=== PATIENT | male | born 1960 | race Caucasian/White ===

== ENCOUNTER 2018-07-18 19:47 | Day surgery (SDC) | payer OTHER ==
--- NOTE | 2018-07-18 20:07 | EDPHY ---
General Time Seen by Provider: 07/18/18 19:58 Narrative: CHIEF COMPLAINT: Something stuck in my throat HISTORY OF PRESENT ILLNESS: Patient presents by private vehicle with complaints of something stuck in my throat. He states that he was eating inch a lot is at 5:00 p.m. Today when he felt a sudden onset of "I feel like it was stuck in my throat." He feels that it is lower in the esophagus, pointing to just above the epigastrium. He says that he has been able to talk freely but he had difficulty drinking liquids since then. He feels like he is bringing up "lots of phlegm," but he has no chest pain or shortness of breath. He has no sensation of foreign body in the throat or upper esophagus. He has had similar episodes in the past that required no intervention but felt the same as this. He has never been seen by GI physician and never undergone upper endoscopy. He has no chest pain or shortness of breath. No nausea vomiting. No diaphoresis. He was 1st seen at an urgent care, where they administered nitroglycerin and sent him here. He has no other associated complaints or modifying factors. REVIEW OF SYSTEMS: 10 systems were reviewed and negative with the exception of the elements mentioned in the history of present illness. PCP: None SPECIALISTS: None PAST MEDICAL HISTORY: Denies PAST SURGICAL HISTORY: None SOCIAL HISTORY: Nonsmoker. Quit smoking 3 years ago. No drug or alcohol use. Works as an surgical assistant at [employer] FAMILY HISTORY: Noncontributory. No known history of achalasia, Zenker's diverticulum or esophageal strictures. EXAMINATION: Vitals: Triage VS reviewed General Appearance: Alert, no distress. Conversing appropriately. No stridor. Head: normocephalic, atraumatic Eyes: Pupils equal and round, no conjunctival pallor or injection ENT, Mouth: Mucous membranes moist. No drooling. No trismus. Airway is widely patent. Neck: Normal inspection, supple, non-tender Respiratory: Lungs are clear to auscultation Cardiovascular: Regular rate and rhythm. No murmur Gastrointestinal: Abdomen is soft and nontender Extremities: Nontender, no pedal edema Psychiatric: Mood and affect normal DIFFERENTIAL DIAGNOSES: Including but not limited to esophageal stricture, esophageal spasm, esophageal foreign body, esophagitis, Zenker's, tracheal foreign body MDM: 8:05 p.m. Acute esophageal foreign body sensation. His symptoms are in the lower esophagus near the esophageal hiatus. He has no pharyngeal complaints. No drooling. No stridor. No difficulty conversing. He reports difficulty drinking water, thus I have ordered x-rays and glucagon IV. He is in no acute distress. He has no exertional pain, shortness of breath, nausea or diaphoresis. Symptoms started at the same time that he was eating and has had similar symptoms in the past. No acute distress. 8:30 p.m. X-rays as read by me, without radiologist, reveal no acute findings. Patient re -evaluated. He just received his glucagon we will monitor. 9:10 p.m. Patient re-evaluated. He is unable to tolerate liquids. He was spitting this up drooling. He is in no acute distress. No aspiration. 9:20 p.m. Case discussed with GI physician Dr. Martel. He will come evaluate the patient plans taken to the operating room for intubation for endoscopy. 9:30 p.m. Patient re-evaluated. He has consented to remain here for procedure from nutrition educator. He continues to fail p.o. Intake of liquids. We have not attempted any further intake. 11:30 p.m. Patient taken to operating room for endoscopy. At this time he is awake and alert. No acute distress. No drooling. Airway patent. SUPERVISION: Patient was independently examined, but I discussed the case with my secondary supervising physician Dr. Kirkland CONSULTATION: Gastroenterology - Diagnostics Imaging Results: Imaging Impressions Chest X-Ray 07/18/18 20:07 Impression: No acute findings in the chest. Soft Tissue Neck X-Ray 07/18/18 20:07 Impression: 1. No radiopaque foreign object identified. 2. Degenerative change in the cervical spine. - History Smoking Status: Former smoker - Objective Vital Signs: Initial Vital Signs Temperature (C) 97.5 F 07/18/18 19:52 Heart Rate 81 07/18/18 19:52 Respiratory Rate 18 07/18/18 19:52 Blood Pressure 131/83 H 07/18/18 19:52 O2 Sat (%) 97 07/18/18 19:52 O2 Delivery Mode Room Air Allergies/Adverse Reactions: No Known Allergies Allergy (Unverified 11/19/18 19:55) Laboratory Results: Laboratory Results 07/18/18 20:05 07/18/18 20:05 07/18/18 07/18/18 20:05 20:05 WBC 5.70 10^3/uL 10^3/uL (3.80-9.50) RBC 4.83 10^6/uL 10^6/uL (4.40-6.38) Hgb 14.3 g/dL g/dL (13.7-17.5) Hct 42.2 % % (40.0-51.0) MCV 87.4 fL fL (81.5-99.8) MCH 29.6 pg pg (27.9-34.1) MCHC 33.9 g/dL g/dL (32.4-36.7) RDW 12.2 % % (11.5-15.2) Plt Count 276 10^3/uL 10^3/uL (150-400) Sodium 138 mEq/L mEq/L (135-145) Potassium 4.6 mEq/L mEq/L (3.3-5.0) Chloride 104 mEq/L mEq/L (97-110) Carbon Dioxide 23 mEq/l mEq/l (22-31) Anion Gap 11 mEq/L mEq/L (6-14) BUN 23 mg/dL mg/dL (7-23) Creatinine 1.0 mg/dL mg/dL (0.7-1.3) Estimated GFR > 60 Glucose 89 mg/dL mg/dL (70-100) Calcium 9.7 mg/dL mg/dL (8.5-10.4) Medications Given: Discontinued Medications Glucagon (Glucagon) 1 mg IVP EDNOW ONE Stop: 07/18/18 20:09 Last Admin: 07/18/18 20:22 Dose: 1 mg Departure - Departure Disposition: To OP Cath/Surgery Clinical Impression: Esophageal foreign body Qualifiers: Encounter type: initial encounter Qualified Code(s): T18.108A - Unspecified foreign body in esophagus causing other injury, initial encounter Condition: Good
[2018-07-18] MEDS ORDERED: GLUCAGON HCL 1 MG VIAL IVP ONE (20:08)
[2018-07-18] MEDS ORDERED: fentaNYL 100 MCG/2 ML INJ ONE (23:33)
[2018-07-18] MEDS ORDERED: LIDOCAINE 2% 100 MG/5 ML SYR ONE (23:33)
[2018-07-18] MEDS ORDERED: ROCURONIUM 50 MG/5 ML VIAL ONE (23:33)
[2018-07-18] MEDS ORDERED: PROPOFOL 200 MG/20 ML VIAL ONE (23:33)
[2018-07-18] MEDS ORDERED: MIDAZOLAM 2 MG/2 ML VIAL ONE (23:33)
--- NOTE | 2018-07-18 23:35 | PDANEPAE ---
ANE Past Medical History - Pulmonary History Hx Oxygen in Use at Home: No Hx Sleep Apnea: No - Endocrine History Hx Diabetes: No ANE Review of Systems Review of Systems: ANE Patient History - Allergies Allergies/Adverse Reactions: No Known Allergies Allergy (Unverified 07/18/18 19:55) - NPO status NPO Since - Liquids (Date): 07/18/18 NPO Since - Liquids (Time): 21:15 NPO Since - Solids (Date): 07/18/18 NPO Since - Solids (Time): 17:00 - Smoking Hx Smoking Status: Former smoker ANE Labs/Vital Signs - Labs Result Diagrams: 07/18/18 20:05 07/18/18 20:05 - Vital Signs Blood Pressure: 127/72 Heart Rate: 76 Respiratory Rate: 18 O2 Sat (%): 96 Height: 175.26 cm Weight: 88.451 kg ANE Physical Exam - Airway Neck exam: FROM Mallampati Score: Class 2 Mouth exam: normal dental/mouth exam - Pulmonary Pulmonary: no respiratory distress - Cardiovascular Cardiovascular: regular rate and rhythym - ASA Status ASA Status: I, E ANE Anesthesia Plan Anesthesia Plan: general endotracheal anesthesia
[2018-07-19] MEDS ORDERED: SUGAMMADEX SODIUM 200 MG/2 ML VIAL IVP ONE (00:06)
--- NOTE | 2018-07-19 00:17 | GIREPORT ---
[facility] - Endoscopy Department Patient Name: Camilo Oleary Procedure Date: 07/18/2018 11:19 PM Patient Type: Outpatient Attending MD/ ER Physician: Pb Dowling Procedure: Upper GI endoscopy Indications: Dysphagia, Foreign body in the esophagus Providers: Magnus Martel MD Referring MD: Parvez Lujan MD Medicines: General Anesthesia Complications: No immediate complications. Estimated blood loss: Minimal. Description of Procedure: After obtaining informed consent, the endoscope was passed under direct vision. Throughout the procedure, the patient's blood pressure, pulse, and oxygen saturations were monitored continuously. The Endoscope was intro duced through the mouth, and advanced to the third part of duodenum. The uppe r GI endoscopy was accomplished without difficulty. The patient tolerated th e procedure well. Findings: Food was found in the lower third of the esophagus. Removal was accompl ished with a large-capacity forceps, rat-toothed forceps, Rankin net and snare. Estimated blood loss was minimal. Mucosal changes including ringed esophagus and longitudinal furrows wer e found in the entire esophagus. Biopsies were obtained from the proximal and distal esophagus with cold forceps for histology of suspected eosinophi lic esophagitis. Estimated blood loss was minimal. A hiatal hernia was present. Moderate inflammation characterized by congestion (edema) and erythema was found in the entire duodenum. Biopsies were taken with a cold forceps f or histology. Estimated blood loss was minimal. The exam was otherwise without abnormality. Estimated Blood Loss: Estimated blood loss was minimal. Post Op Diagnosis: - Food was found in the esophagus. Removal was successful. - Esophageal mucosal changes suggestive of eosinophilic esophagitis. Biopsied. - Hiatal hernia. - Duodenitis. Biopsied. - The examination was otherwise normal. Recommendation: - Await pathology results. - My office will call with the pathology result with 5-7 days. If you h ave not heard from my office by 12-14, do not assume the pathology is soumya l, please call [phone] to get the pathology results. - If biopsy are consistent with Eosinophilic Esophagitis (EoE), then re santosh to supervisor drilling and shooting and consider swallowed not inhaled fluticasone prn. - Use Protonix (pantoprazole) 40 mg PO daily. Take 30-60 minutes before breakfast. - Cut food into small pieces and chew well. Try to avoid meats for a fe w days at least. - Discharge patient to home (ambulatory). - Return to primary care physician as previously scheduled. - Refer to Management Associate at appointment to be scheduled. - Repeat upper endoscopy in 8 weeks for retreatment. - Perform a colonoscopy at appointment to be scheduled. Could be done a t the same time - Thank you for allowing me to help in your patient's care. Do not hesi sal to call with any questions. Attending Participation: I personally performed the entire procedure. Tahmina Agudelo M.D Magnus Martel MD 07/19/2018 12:16:37 AM This report has been signed electronicallyMathew MD Tahmina Number of Addenda: 0 Note Initiated On: 07/18/2018 11:19 PM [email or web address]
[2018-07-19] MEDS ORDERED: fentaNYL 100 MCG/2 ML INJ IVP PRN (00:21)
[2018-07-19] MEDS ORDERED: NALOXONE HCL 0.4 MG/ML INJ IVP PRN (00:21)
[2018-07-19] MEDS ORDERED: ALBUTEROL 3 ML DEYVIAL IH PRN (00:21)
[2018-07-19] MEDS ORDERED: ONDANSETRON 4 MG/2 ML VIAL IVP PRN (00:21)
--- NOTE | 2018-07-19 00:21 | POSTANESTH ---
Post Anesthetic Evaluation Cardiovascular Status: Similar to Pre-Op Cond Respiratory Status: Similar to Pre-op Cond. Level of Consciousness/Mental Status: Mildly Sleepy, Arousable Pain Control: Adequate, Prn Tx Ordered Nausea/Vomiting Control: Adequate, Prn Tx Ordered Complications Possibly Related to Anesthesia: None Noted
[2018-07-19 01:18] VITALS: BP 142/75
--- NOTE | 2018-07-19 08:58 | GCON ---
DATE OF CONSULTATION: 07/18/2018 REFERRING PHYSICIAN: Glen Kirkland MD INDICATION FOR CONSULTATION: Probable foreign body. HISTORY OF PRESENT ILLNESS: I have been asked by Dr. Kirkland and Rojelio Cooper to see the patient in consultation for chief complaint of foreign body. The patient is a pleasant 58-year-old male who has had a few episodes of dysphagia over the last few months. He does have a significant history of allergies to multiple products, including animals and food. He does not complain of any significant heartburn or reflux symptoms. He was eating a pork taco this evening when it is stuck in his throat and he was not able to tolerate any saliva, nor p.o. intake. He has never had an upper endoscopy. Prior to the last few months, he has never had any episodes of dysphagia. He is now in the emergency room for evaluation. I am called to help and treat in that regard. PAST MEDICAL HISTORY: Intermittent dysphagia as noted above, otherwise negative. PAST SURGICAL HISTORY: ACL repair and had some dental implants. MEDICATIONS: At home, he takes supplements and turmeric. ALLERGIES: No known drug allergies. SOCIAL HISTORY: He quit smoking and drinking about 3 to 4 years ago. FAMILY HISTORY: There are no cancers in his family to his knowledge. REVIEW OF SYSTEMS: A complete review of systems performed and is negative other than noted in the HPI. PHYSICAL EXAM: GENERAL: Well-developed, well-nourished male who is sitting in his chair, but getting up to empty his esophagus. VITAL SIGNS: Blood pressure 127/72, pulse 76, respirations 18. He is 96% on room air. Temperature 36.5. HEENT: Eyes: Anicteric. LARISA, EOMI. Mouth: No lesions. Moist mucous membranes. NECK: Supple. Full range of motion. No JVD. BACK: No spine tenderness. No CVA tenderness. LUNGS: Clear to auscultation. CARDIAC: S1, S2. Regular rate and rhythm. No murmurs, rubs or gallops appreciated. ABDOMEN : Bowel sounds are normal in pitch and frequency. Abdomen is soft and nontender. No hepatosplenomegaly. EXTREMITIES: No cyanosis, clubbing, or edema. NEUROLOGIC: Cranial nerves intact. Nonfocal. SKIN: No stigmata of advanced liver disease. No rashes. LABORATORY/IMAGING: WBC 5.7, hemoglobin 14.3, hematocrit 42.2, platelet count 276. Sodium 138, potassium 4.6, chloride 104, bicarb 23, BUN 23, creatinine 1.0 , glucose 89, calcium 9.7. A chest x-ray performed today at 8:07 p.m. showed no acute findings in the chest and a soft tissue x-ray of his neck was also normal. ASSESSMENT: Episodes of dysphagia now with foreign body, unable to tolerate his own saliva. RECOMMENDATIONS: 1. Urgent EGD with anesthesiology to intubate the patient to prevent aspiration in this patient with likely eosinophilic esophagitis and foreign body. 2. We will perform EGD with biopsies of both proximal and distal esophagus to document EOE. 3. Referral to accounts receivable assistant. 4. Start PPI daily. 5. Consider fluticasone (swallowed, not inhaled) b.i.d. once diagnosis of eosinophilic esophagitis is confirmed. 6. Cut food into small pieces and chew well. 7. Patient will need a repeat EGD in approximately 8 weeks and PPI for re- biopsy, as well as dilation. 8. Further recommendations to follow results above and clinical course. 9. I will need Anesthesia to intubate the patient to make this a safe procedure. His risk of aspiration is significant with EGD for presumed eosinophilic esophagitis with a foreign body. Thank you for allowing me to participate in the patient's healthcare. Do not hesitate me to call with any questions. Copy requested to: Dr. Lujan /[id number]/MODL [email or web address]
== END 2018-07-19 01:00 | disposition home or self-care (01) ==
LOC: FSGY 22:02
PROVIDERS: ATTEND Internal Medicine Gastroenterology
PROC: 0DC38ZZ Extirpation of Matter from Lower Esophagus, Via Natural or Artificial Opening Endoscopic (ICD-10-PCS; principal; 2018-07-18 23:30)
DX: T18.128A Food in esophagus causing other injury, initial encounter (principal); R13.10 Dysphagia, unspecified
CPT/HCPCS: 96374; J1610; J2001; J2250; J2704; J3010